=== PATIENT | female | born 1965 | race Caucasian/White ===

== ENCOUNTER 2017-02-10 03:19 | Emergency (ER) | payer OTHER ==
[~2017-02-10] VITALS: Ht 172.7 cm; Wt 68.7 kg
[~2017-02-10 03:19] MED LIST: LEVO25TA4 PO; LISI-170 PO; MORPHINE PO; OXYC-307 PO
[2017-02-10 05:04] LABS: HEMATOCRIT 44.7 % (34.6-47.8); HEMOGLOBIN 15.3 g/dL (11.7-16.4); WHITE BLOOD COUNT 12.3 x10^3/uL (3.4-10)
[2017-02-10 05:10] LABS: BLOOD UREA NITROGEN 4 mg/dL (7-18)
[2017-02-10 05:16] LABS: IS PT STATUS REG ER OR PRE ER? YES
[2017-02-10] MEDS ORDERED: ASPIRIN 81 MG TABLET CHEW ONE (05:24)
[2017-02-10] MEDS ORDERED: ASPIRIN 81 MG TABLET CHEW PO ONE (05:30)
[2017-02-10] MEDS ORDERED: KETOROLAC 30 MG/1 ML ONE (05:54)
[2017-02-10] MEDS ORDERED: KETOROLAC 30 MG/1 ML IVPush ONE (06:00)
[2017-02-10 06:30] VITALS: BP 158/85
== END 2017-02-10 06:32 | disposition home or self-care (01) ==
LOC: ED 05:52
DX: M94.0 Chondrocostal junction syndrome [Tietze] (principal); I10 Essential (primary) hypertension; J44.9 Chronic obstructive pulmonary disease, unspecified; E03.9 Hypothyroidism, unspecified
CPT/HCPCS: 36415; 71010; 80048; 82040; 84484; 85025; 93005; 96374; 99285; J1885